=== PATIENT | male | born 1965 | race Caucasian/White ===

== ENCOUNTER 2022-05-29 12:17 | Inpatient (IN) | payer BC ==
[2022-05-29 12:43] LABS: #Basophils 0.1 10x3/uL (0.0-0.2); #Eosinphils 0.3 10x3/uL (0.0-0.5); #Monocytes 1.6 10x3/uL (0.0-1.1); #Neutrophils 7.5 10x3/uL (1.5-8.4); %Basophils 0.6 % (0.0-2.0); %Eosinophils 2.1 % (0.0-6.0); %Lymphocytes 35.2 % (18.0-47.0); %Neutrophils 50.5 % (40.0-75.0); Mean Corpuscular HGB CONC 35.7 g/dL (32.0-36.0); Mean Corpuscular Hemoglobin 30.9 pg (27.0-33.0); Mean Corpuscular Volume 86.6 fl (81.2-95.1); Mean Platelet Volume 11.2 fl (7.4-10.4); Platelet Count 231 10x3/uL (150-450); RBC Distribution Width 12.9 % (11.5-14.5); Red Blood Cell (RBC) Count 4.85 10x6/uL (4.32-5.72); White Blood Cell (WBC) Count 14.9 10x3/uL (3.5-10.5)
[2022-05-29 12:57] LABS: ALT (SGPT) 24 U/L (8-55); AST (SGOT) 18 U/L (5-34); Albumin 4.5 g/dL (3.5-5.0); Alkaline Phosphatase 85 U/L (40-110); Anion Gap 16 mmol/L (10-20); BUN (Urea Nitrogen) 15 mg/dL (8.4-25.7); Bilirubin, Total 0.6 mg/dL (0.2-1.2); Calc. Creatinine Clearance 0 mL/min (70-130); Calcium 9.5 mg/dL (7.8-10.44); Carbon Dioxide 19 mmol/L (22-29); Chloride 108 mmol/L (98-107); Estimated GFR 100; Globulin 2.5 g/dL (2.4-3.5); Glucose 108 mg/dL (70-105); Lipase 18 U/L (8-78); Potassium 3.1 mmol/L (3.5-5.1); Sodium 140 mmol/L (136-145)
[2022-05-29] MEDS ORDERED: Cefepime 2 GM VIAL ONE (13:02)
[2022-05-29] MEDS ORDERED: VANCOMYCIN 2 GRAM/400 ML BAG 2 GM in Premix Bag 1 BAG IVPB SCH (13:15)
[2022-05-29 13:17] LABS: Bilirubin Neg (Negative); Blood, Urine Negative (Negative); Clarity Clear (Clear); Glucose, Urine (Dipstick) Normal (Negative); Ketone, Urine Negative (Negative); Leukocyte 25 (Negative); Nitrite Negative (Negative); Protein, Urine (Dipstick) 15 mg/dl (Neg-Trace); Urobilinogen Normal mg/dL (Less than 2)
[2022-05-29 13:25] LABS: Amphetamine Not Detected (NotDetected); Barbiturates Screen Not Detected (NotDetected); Benzodiazepine Screen Detected (NotDetected); Cocaine Metabolite Screen Not Detected (NotDetected); Methadone Not Detected (NotDetected); Methamphetamine Not Detected (NotDetected); Opiate Screen Not Detected (NotDetected); Oxycodone Screen Not Detected (NotDetected); Phencyclidine (PCP) Not Detected (NotDetected); THC/Cannabinoid Screen Detected (NotDetected); Tricyclic Screen Not Detected (NotDetected)
[2022-05-29 13:29] LABS: Bacteria/HPF 1+ HPF (None Seen); RBC/HPF 0-3 HPF (0-3); Squamous Epithelial 0-3 HPF (0-3)
[2022-05-29 13:53] LABS: Acetaminophen Less than 10.0 mcg/mL (10.0-30.0); Alcohol Less than 10 mg/dL (Less than 10); Salicylate Less than 8.0 mg/dL (15.0-30.0)
[2022-05-29] MEDS ORDERED: Aspirin Chewable 81 MG TAB ONE (14:02)
[2022-05-29 14:07] LABS: SARS-CoV-2 NAA Rapid Test Not Detected (NotDetected)
[2022-05-29 15:19] LABS: Lactic Acid 1.2 mmol/L (0.5-2.2)
[2022-05-29 15:57] LABS: Troponin I Less than 0.010 ng/mL (< 0.028)
[2022-05-29] MEDS ORDERED: Acetaminophen 650 MG Suppository PR PRN (16:33)
[2022-05-29] MEDS ORDERED: Ondansetron ODT 4 MG TAB PO PRN (16:33)
[2022-05-29] MEDS ORDERED: Ondansetron PF 4 MG/2 ML Vial IVP PRN (16:33)
[2022-05-29] MEDS ORDERED: Acetaminophen 325 MG TAB PO PRN (16:33)
[2022-05-29] MEDS ORDERED: Nitroglycerin 0.4 MG TAB (25 Tab Bottle) SL PRN (16:33)
[2022-05-29 19:06] LABS: Troponin I Less than 0.010 ng/mL (< 0.028)
[2022-05-29] MEDS ORDERED: Atorvastatin Calcium 40 MG TAB PO SCH (21:00)
[2022-05-30 01:04] VITALS: BMI 33.4
[2022-05-30 06:19] LABS: Anion Gap 12 mmol/L (10-20); BUN (Urea Nitrogen) 10 mg/dL (8.4-25.7); Calc. Creatinine Clearance 155 mL/min (70-130); Calcium 9.1 mg/dL (7.8-10.44); Carbon Dioxide 23 mmol/L (22-29); Cardiac Risk 4.2 (Less than 4.5); Chloride 111 mmol/L (98-107); Cholesterol 201 mg/dl (< 200 Desired); Estimated GFR 106; Glucose 102 mg/dL (70-105); HDL Cholesterol 48 mg/dL (>60 Neg Risk); LDL Cholesterol, Calculated 128 mg/dL; Potassium 3.7 mmol/L (3.5-5.1); Sodium 142 mmol/L (136-145); Triglycerides 127 mg/dL (Less than 150)
[2022-05-30 06:21] LABS: #Basophils 0.1 10x3/uL (0.0-0.2); #Eosinphils 0.3 10x3/uL (0.0-0.5); #Monocytes 1.1 10x3/uL (0.0-1.1); %Basophils 0.7 % (0.0-2.0); %Eosinophils 3.2 % (0.0-6.0); %Lymphocytes 27.5 % (18.0-47.0); %Monocytes 10.7 % (0.0-10.0); %Neutrophils 57.5 % (40.0-75.0); Mean Corpuscular HGB CONC 35.4 g/dL (32.0-36.0); Mean Corpuscular Hemoglobin 31.4 pg (27.0-33.0); Mean Corpuscular Volume 88.6 fl (81.2-95.1); Mean Platelet Volume 11.5 fl (7.4-10.4); Platelet Count 208 10x3/uL (150-450); RBC Distribution Width 13.1 % (11.5-14.5); Red Blood Cell (RBC) Count 4.46 10x6/uL (4.32-5.72); White Blood Cell (WBC) Count 10.5 10x3/uL (3.5-10.5)
[2022-05-30] MEDS ORDERED: Heparin 10,000 UNITS/ 10 ML VIAL ONE ×2 (09:59→11:03)
[2022-05-30] MEDS ORDERED: Lidocaine 1% (PF) 30 ML VIAL ONE (09:59)
[2022-05-30] MEDS ORDERED: Fentanyl 100 MCG/2 ML VIAL ONE (10:27)
[2022-05-30] MEDS ORDERED: Midazolam HCl 2 mg/2 ml Vial ONE ×2 (10:27→10:39)
[2022-05-30] MEDS ORDERED: TICAGRELOR 90 MG TABLET ONE (11:09)
[2022-05-30] MEDS ORDERED: Ondansetron PF 4 MG/2 ML Vial ONE (11:18)
[2022-05-30] MEDS ORDERED: Nitroglycerin 50 MG/250 ML BOT 250 ML ONE (11:19)
[2022-05-30] MEDS ORDERED: Morphine 4 MG/ML VIAL ONE (11:19)
[2022-05-30] MEDS ORDERED: Protamine Sulfate 50 MG/5 ML VIAL ONE (11:44)
[2022-05-30] MEDS: Sodium Chloride 0.9% 1,000 ML IV SCH (14:34)
[2022-05-30] MEDS: TICAGRELOR 90 MG TABLET PO SCH (20:16)
[2022-05-30] MEDS ORDERED: Atorvastatin Calcium 40 MG TAB PO SCH (21:00)
[2022-05-31] MEDS: Sodium Chloride 0.9% 1,000 ML IV SCH ×2 (03:48→08:14)
[2022-05-31 05:34] LABS: ALT (SGPT) 18 U/L (8-55); AST (SGOT) 17 U/L (5-34); Albumin 3.9 g/dL (3.5-5.0); Alkaline Phosphatase 74 U/L (40-110); Anion Gap 12 mmol/L (10-20); BUN (Urea Nitrogen) 9 mg/dL (8.4-25.7); Bilirubin, Total 0.8 mg/dL (0.2-1.2); Calc. Creatinine Clearance 140 mL/min (70-130); Calcium 9.2 mg/dL (7.8-10.44); Carbon Dioxide 24 mmol/L (22-29); Chloride 110 mmol/L (98-107); Estimated GFR 103; Globulin 2.6 g/dL (2.4-3.5); Glucose 93 mg/dL (70-105); Potassium 3.7 mmol/L (3.5-5.1); Protein, Total 6.5 g/dL (6.0-8.3); Sodium 142 mmol/L (136-145)
[2022-05-31 05:41] LABS: #Basophils 0.1 10x3/uL (0.0-0.2); #Eosinphils 0.4 10x3/uL (0.0-0.5); #Monocytes 1.1 10x3/uL (0.0-1.1); #Neutrophils 5.3 10x3/uL (1.5-8.4); %Basophils 0.7 % (0.0-2.0); %Eosinophils 3.9 % (0.0-6.0); %Lymphocytes 25.1 % (18.0-47.0); %Monocytes 11.8 % (0.0-10.0); %Neutrophils 58.2 % (40.0-75.0); Hemoglobin 13.6 g/dL (13.5-17.5); Mean Corpuscular HGB CONC 35.1 g/dL (32.0-36.0); Mean Corpuscular Hemoglobin 31.3 pg (27.0-33.0); Mean Platelet Volume 11.5 fl (7.4-10.4); Platelet Count 196 10x3/uL (150-450); RBC Distribution Width 12.9 % (11.5-14.5); Red Blood Cell (RBC) Count 4.35 10x6/uL (4.32-5.72); White Blood Cell (WBC) Count 9.1 10x3/uL (3.5-10.5)
[2022-05-31] MEDS ORDERED: Aspirin Chewable 81 MG TAB PO SCH (09:00)
[2022-05-31] MEDS: TICAGRELOR 90 MG TABLET PO SCH (10:01)
[2022-05-31 10:03] VITALS: BP 150/91; TEMP 98.3
== END 2022-05-31 10:43 | disposition home or self-care (01) | DRG 247 ==
LOC: CSHERS 12:17 → CSHERHOLD 17:54 → CSHTELE 21:11 → OBSVTOIN 05-30 18:29
PROVIDERS: ADMIT Family Medicine; ATTEND Family Medicine
PROC: 027034Z Dilation of Coronary Artery, One Artery with Drug-eluting Intraluminal Device, Percutaneous Approach (ICD-10-PCS; principal; 2022-05-30)
PROC: 4A023N7 Measurement of Cardiac Sampling and Pressure, Left Heart, Percutaneous Approach (ICD-10-PCS; 2022-05-30)
PROC: B2111ZZ Fluoroscopy of Multiple Coronary Arteries using Low Osmolar Contrast (ICD-10-PCS; 2022-05-30)
PROC: B2151ZZ Fluoroscopy of Left Heart using Low Osmolar Contrast (ICD-10-PCS; 2022-05-30)
PROC: B241ZZ3 Ultrasonography of Multiple Coronary Arteries, Intravascular (ICD-10-PCS; 2022-05-30)
DX: I25.110 Atherosclerotic heart disease of native coronary artery with unstable angina pectoris (principal); I10 Essential (primary) hypertension; F17.210 Nicotine dependence, cigarettes, uncomplicated; Z20.822 Contact with and (suspected) exposure to COVID-19; E78.5 Hyperlipidemia, unspecified; E11.9 Type 2 diabetes mellitus without complications; F12.10 Cannabis abuse, uncomplicated; E87.6 Hypokalemia; Z79.82 Long term (current) use of aspirin; Z79.899 Other long term (current) drug therapy; Z98.890 Other specified postprocedural states
CPT/HCPCS: 36415; 71045; 80048; 80053; 80061; 80306; 80307; 81003; 81015; 83605; 83690; 83880; 84443; 84484; 85025; 85347; 87040; 87086; 92928; 92978; 92979; 93005; 93010; 93458; 94760; 96365; 96366; 96367; 97139; 99152; 99153; C1725; C1726; C1753; C1760; C1769; C1874; C1887; C9600; J0692; J1644; J1650; J2001; J2250; J2270; J2405; J2720; J3010; J3370

== ENCOUNTER 2022-06-05 13:04 | Observation (INO) | payer BC ==
[2022-06-05] MEDS ORDERED: Nitroglycerin 0.4 MG TAB (25 Tab Bottle) SL PRN (14:04)
[2022-06-05] MEDS ORDERED: Senokot S 8.6-50 MG TAB PO PRN (14:14)
[2022-06-05] MEDS ORDERED: Acetaminophen 325 MG TAB PO PRN (14:14)
[2022-06-05 14:35] LABS: Magnesium 1.9 mg/dL (1.6-2.6)
[2022-06-05 14:42] LABS: Troponin I 0.032 ng/mL (< 0.028)
[2022-06-05] MEDS ORDERED: Nicotine 14 MG PATCH TD SCH (15:00)
[2022-06-05 17:37] LABS: Troponin I 0.027 ng/mL (< 0.028)
[2022-06-05 19:21] VITALS: BMI 31.3
[2022-06-05 20:57] LABS: Troponin I 0.029 ng/mL (< 0.028)
[2022-06-05] MEDS ORDERED: Atorvastatin Calcium 40 MG TAB PO SCH (21:00)
[2022-06-05] MEDS: TICAGRELOR 90 MG TABLET PO SCH (22:35)
[2022-06-05] MEDS: levETIRAcetam 500 mg/5 ml Oral Solution PO SCH (22:36)
[2022-06-05 23:36] LABS: SARS-CoV-2 NAA Rapid Test Not Detected (NotDetected)
[2022-06-06 04:24] LABS: #Basophils 0.1 10x3/uL (0.0-0.2); #Eosinphils 0.5 10x3/uL (0.0-0.5); #Monocytes 1.1 10x3/uL (0.0-1.1); #Neutrophils 6.4 10x3/uL (1.5-8.4); %Basophils 0.9 % (0.0-2.0); %Eosinophils 4.8 % (0.0-6.0); %Lymphocytes 21.6 % (18.0-47.0); %Monocytes 10.5 % (0.0-10.0); %Neutrophils 61.6 % (40.0-75.0); Hemoglobin 13.7 g/dL (13.5-17.5); Mean Corpuscular HGB CONC 34.9 g/dL (32.0-36.0); Mean Corpuscular Hemoglobin 31.1 pg (27.0-33.0); Mean Corpuscular Volume 89.3 fl (81.2-95.1); Mean Platelet Volume 11.6 fl (7.4-10.4); Platelet Count 222 10x3/uL (150-450); White Blood Cell (WBC) Count 10.3 10x3/uL (3.5-10.5)
[2022-06-06 04:35] LABS: Anion Gap 13 mmol/L (10-20); BUN (Urea Nitrogen) 18 mg/dL (8.4-25.7); Calc. Creatinine Clearance 137 mL/min (70-130); Calcium 9.1 mg/dL (7.8-10.44); Carbon Dioxide 24 mmol/L (22-29); Chloride 107 mmol/L (98-107); Estimated GFR 106; Glucose 93 mg/dL (70-105); Potassium 3.6 mmol/L (3.5-5.1); Sodium 140 mmol/L (136-145)
[2022-06-06] MEDS ORDERED: Multivit, Therapeutic 1 TAB PO SCH (09:00)
[2022-06-06] MEDS ORDERED: Losartan 25 MG TAB PO SCH (09:00)
[2022-06-06] MEDS ORDERED: Nicotine 14 MG PATCH TD SCH (09:00)
[2022-06-06] MEDS ORDERED: Aspirin 81 mg Enteric Coated Tablet PO SCH (09:00)
[2022-06-06] MEDS ORDERED: Sertraline 25 MG TAB PO SCH (09:00)
[2022-06-06] MEDS ORDERED: Nicotine 21 MG PATCH TD SCH (09:00)
[2022-06-06] MEDS: levETIRAcetam 500 mg/5 ml Oral Solution PO SCH (09:38)
[2022-06-06] MEDS: TICAGRELOR 90 MG TABLET PO SCH (09:39)
[2022-06-06 16:13] VITALS: BP 128/78; TEMP 98.1
== END 2022-06-06 17:45 | disposition home or self-care (01) ==
LOC: CSHERS 13:04 → CSHTELE 16:45
PROVIDERS: ADMIT Family Medicine; ATTEND Internal Medicine
DX: R07.9 Chest pain, unspecified (principal); I25.10 Atherosclerotic heart disease of native coronary artery without angina pectoris; R42 Dizziness and giddiness; I71.21 Aneurysm of the ascending aorta, without rupture; I44.7 Left bundle-branch block, unspecified; I11.9 Hypertensive heart disease without heart failure; E78.5 Hyperlipidemia, unspecified; R56.9 Unspecified convulsions; Z79.82 Long term (current) use of aspirin; Z98.84 Bariatric surgery status; Z72.0 Tobacco use; Z20.822 Contact with and (suspected) exposure to COVID-19
CPT/HCPCS: 36415; 80048; 83735; 84484; 85025; 93005; 93306; 93970; 94760; G0378